=== PATIENT | male | born 1990 | race Caucasian/White ===

== ENCOUNTER 2020-06-29 20:25 | Emergency (ER) | payer BC, OTHER ==
[2020-06-29 20:32] VITALS: BP 158/98; PULSE 100; RESP 19; TEMP 98.4
[2020-06-29] MEDS ORDERED: BACITRACIN OINT 1 EACH PACKET TOPICAL STA (20:37)
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
== END 2020-06-29 20:52 | disposition home or self-care (01) ==
LOC: EC 20:25
DX: S80.212A Abrasion, left knee, initial encounter (principal); S80.211A Abrasion, right knee, initial encounter; S60.311A Abrasion of right thumb, initial encounter; S00.81XA Abrasion of other part of head, initial encounter; Y04.2XXA Assault by strike against or bumped into by another person, initial encounter; Y93.89 Activity, other specified; Y99.8 Other external cause status
CPT/HCPCS: 99283